=== PATIENT | male | born 1965 | race African-American/Black ===

== ENCOUNTER 2022-09-29 12:05 | Emergency (ER) | payer OTHER ==
[2022-09-29 12:21] VITALS: BP 142/89
--- NOTE | 2022-09-29 13:02 | ED Physician Documentation ---
PD HPI OPHTHO - Stated complaint Stated Complaint: BILAT EYE IRRITATION/SWELLING - Chief complaint Chief Complaint: Heent - History obtained from History obtained from: Patient - History of Present Illness Timing - onset: How many weeks ago (2) Timing - duration: Weeks (2) Timing - details: Gradual onset Location: Both Quality / character: Itching, Burning Associated symptoms: Redness, Tearing. No: Discharge, FB sensation, Double vision - Additional information Additional information: 57-year-old male presents the emergency department with bilateral eye discomfort, tearing and drainage. He states he was treated for bacterial con junctivitis, has been on several different eyedrops and ointments. He states he saw Dr. Conte, ophthalmology who placed him on prednisolone, he states that he was improving on this but stopped it 2 to 3 days ago and symptoms are worsening again. He states he did not call ophthalmology for follow-up. [facility]. Patient does not wear contacts. No fevers. No chills. has similar symptoms. He states his vision is blurry today. Review of Systems Constitutional: denies: Fever GI: denies: Vomiting PD PAST MEDICAL HISTORY - Past Medical History Past Medical History: No - Past Surgical History Past Surgical History: No - Allergies Allergies/Adverse Reactions: Allergies Allergy/AdvReac Type Severity Reaction Status Date / Time No Known Drug Allergies Allergy Verified 09/29/22 12:15 PD ED PE NORMAL - Vitals Vital signs reviewed: Yes - General General: Alert and oriented X 3, No acute distress - HEENT HEENT: PERRL, Moist mucous membranes, Pharynx benign, Other (Mild bilateral conjunctival injection. No drainage. No fluorescein uptake. No corneal ulcerations. No pain with extraocular movement) - Neck Neck: Supple, no meningeal sign - Cardiac Cardiac: RRR - Respiratory Respiratory: No respiratory distress, Clear bilaterally - Derm Derm: Warm and dry - Neuro Neuro: Alert and oriented X 3 - Psych Psych: Normal mood, Normal affect Results - Vitals Vitals: Vital Signs - 24 hr 09/29/22 12:16 Temperature 36.6 C Heart Rate 69 Respiratory 16 Rate Blood Pressure 142/89 H O2 Saturation 100 Oxygen O2 Source Room air PD Medical Decision Making - ED course Complexity details: considered differential, d/w patient ED course: Discussed the case with ophthalmology, Dr. Conte. He recommends holding antibiotics at this time he thinks that the patient may have had a reaction to the ophthalmic antibiotics originally. Recommends the patient go back on the prednisolone eyedrops as prescribed and follow-up closely in the office. Patient counseled regarding signs and symptoms for which I believe and urgent re-evaluation would be necessary. Patient with good understanding of and agreement to plan and is comfortable going home at this time This document was made in part using voice recognition software. While efforts are made to proofread this document, sound alike and grammatical errors may occur. Departure - Departure Disposition: 01 Home, Self Care Clinical Impression: Conjunctivitis Qualifiers: Conjunctivitis type: unspecified Laterality: bilateral Qualified Code(s): H10.9 - Unspecified conjunctivitis Condition: Good Instructions: ED Conjunctivitis Nonspecific Follow-Up: AYLIN CHAVEZ ARNP [Primary Care Provider] - Adeel Conte MD [Provider Admit Priv/Credential] - Within 3 Days Comments: I spoke with Dr. Conte today and he recommended to start on the prednisone as previously prescribed. He feels that you may have been having a reaction to the last antibiotic you are placed on. He does not recommend further antibiotics today. Please contact his office today for an appointment within the next 1 to 2 days. Discharge Date/Time: 09/29/22 13:05
== END 2022-09-29 13:05 | disposition home or self-care (01) ==
LOC: ED 12:05
DX: H10.9 Unspecified conjunctivitis (principal)
CPT/HCPCS: 99281; 99284

== ENCOUNTER 2023-09-11 16:41 | Emergency (ER) | payer OTHER ==
--- NOTE | 2023-09-11 17:20 | ED Physician Documentation ---
History of Present Illness - Stated complaint Stated Complaint: - Chief complaint Chief Complaint: UTI - History obtained from History obtained from: Patient - Additonal information Additional information: Relatively healthy 57-year-old gentleman with history of remote UroLift procedure 3 years ago has had 3 weeks of worsening suprapubic discomfort and dysuria. Also dark urine. No fevers or back pain. PD PAST MEDICAL HISTORY - Past Medical History Past Medical History: No - Past Surgical History Past Surgical History: Yes - Present Medications Home Medications: Ambulatory Orders Medication Instructions Recorded Confirmed No Known Home Medications 09/11/23 09/11/23 - Allergies Allergies/Adverse Reactions: Allergies Allergy/AdvReac Type Severity Reaction Status Date / Time No Known Drug Allergies Allergy Verified 09/11/23 17:03 - Social History Does the pt smoke?: No Smoking Status: Never smoker PD ED PE NORMAL - Vitals Vital signs reviewed: Yes - General General: Alert and oriented X 3, No acute distress - Abdomen Abdomen: Normal bowel sounds, Soft, Non tender - Male Male : Other (Normal male circumcised genitalia, no hernia mass or tenderness of the testicles.) - Neuro Neuro: Alert and oriented X 3 Results - Vitals Vitals: Vital Signs - 24 hr 09/11/23 09/11/23 09/11/23 16:59 18:18 18:54 Temperature 36.5 C 36.5 C Heart Rate 64 70 70 Respiratory 16 17 17 Rate Blood Pressure 123/84 H 121/88 H 121/88 H O2 Saturation 97 100 100 Oxygen O2 Source Room air - Labs Labs: Laboratory Tests 09/11/23 09/11/23 09/11/23 17:14 17:14 17:20 WBC 5.3 RBC 4.98 Hgb 15.0 Hct 46.0 MCV 92.4 MCH 30.1 MCHC 32.6 RDW 13.0 Plt Count 254 MPV 10.3 Neut # (Auto) 3.4 Lymph # (Auto) 1.3 L Dale # (Auto) 0.4 Eos # (Auto) 0.1 Baso # (Auto) 0.1 Absolute Nucleated RBC 0.00 Nucleated RBC % 0.0 Sodium 139 Potassium 3.7 Chloride 106 Carbon Dioxide 28 Anion Gap 5.0 L BUN 16 Creatinine 1.0 Estimated GFR (MDRD) 93 Glucose 104 Calcium 9.7 Total Bilirubin 0.7 AST 16 ALT 15 Alkaline Phosphatase 72 Total Protein 6.8 Albumin 4.3 Globulin 2.5 Albumin/Globulin Ratio 1.7 Lipase 61 Urine Color YELLOW Urine Clarity HAZY Urine pH 6.0 Ur Specific Stella >=1.030 H Urine Protein TRACE Urine Glucose (UA) NEGATIVE Urine Ketones TRACE Urine Occult Blood LARGE H Urine Nitrite NEGATIVE Urine Bilirubin NEGATIVE Urine Urobilinogen 1 (NORMAL) Ur Leukocyte Esterase NEGATIVE Urine RBC TNTC H Urine WBC 0-3 Ur Squamous Epith Cells FEW Squamous Urine Bacteria Few Ur Microscopic Review INDICATED Urine Culture Comments NOT INDICATED PD Medical Decision Making - ED course ED course: He presents with pelvic discomfort and hematuria. Workup demonstrates a normal CBC, normal CMP, bloody urine without signs of infection, and CT showing bladder stones. He was referred to urology. Departure - Departure Disposition: 01 Home, Self Care Clinical Impression: Bladder stone Condition: Good Record reviewed to determine appropriate education?: Yes Follow-Up: Frank Cunningham MD [Provider Admit Priv/Credential] - Comments: You have stones in your bladder and you should follow-up with our urologist, call for the next available appointment. Return for new or worsening symptoms. There is no current evidence of bladder infection or other worrisome etiology. Discharge Date/Time: 09/11/23 18:55
[2023-09-11 17:24] LABS: BASOPHILS # (AUTO) 0.1 10^3/uL (0.0-0.1); BASOPHILS % (AUTO) 0.9 %; EOSINOPHILS # (AUTO) 0.1 10^3/uL (0.0-0.7); EOSINOPHILS % (AUTO) 1.9 %; LYMPHOCYTES # (AUTO) 1.3 10^3/uL (1.5-3.5); MEAN CORPUSCULAR HEMOGLOBIN 30.1 pg (27.0-31.0); MEAN CORPUSCULAR HGB CONC 32.6 g/dL (32.0-36.0); MEAN CORPUSCULAR VOLUME 92.4 fL (80.0-94.0); MEAN PLATELET VOLUME 10.3 fL (7.4-11.4); MONOCYTES # (AUTO) 0.4 10^3/uL (0.0-1.0); MONOCYTES % (AUTO) 7.3 %; NEUTROPHILS # (AUTO) 3.4 10^3/uL (1.5-6.6); NEUTROPHILS % (AUTO) 64.7 %; PLT - PLATELET COUNT 254 10^3/uL (130-450); RED BLOOD COUNT 4.98 10^6/uL (4.70-6.10); WHITE BLOOD COUNT 5.3 x10^3/uL (4.8-10.8)
[2023-09-11 17:31] LABS: BILIRUBIN,URINE NEGATIVE (NEGATIVE); CLARITY,URINE HAZY (CLEAR); GLUCOSE, URINE (UA) NEGATIVE (NEGATIVE); KETONES,URINE (UA) TRACE mg/dL (NEGATIVE); LEUKOCYTE ESTERASE, URINE NEGATIVE (NEGATIVE); NITRITE,URINE NEGATIVE (NEGATIVE); OCCULT BLOOD,URINE LARGE (NEGATIVE); PROTEIN,URINE TRACE mg/dL (NEGATIVE); UROBILINOGEN,URINE 1 (NORMAL) E.U./dL (NORMAL)
[2023-09-11 17:37] LABS: ALBUMIN 4.3 g/dL (3.2-5.5); ALBUMIN/GLOBULIN RATIO 1.7 (1.0-2.2); BILIRUBIN,TOTAL 0.7 mg/dL (0.2-1.0); CALCIUM 9.7 mg/dL (8.5-10.3); POTASSIUM 3.7 mmol/L (3.5-4.5); TOTAL PROTEIN 6.8 g/dL (6.4-8.9)
[2023-09-11 17:38] LABS: BACTERIA,URINE Few /HPF (None Seen); RBC,URINE TNTC /HPF (0-5); SQUAMOUS EPITHELIAL CELL,UR FEW Squamous (<= Few); WBC,URINE 0-3 /HPF (0-3)
[2023-09-11 18:32] VITALS: BP 121/88; O2SAT 100
--- NOTE | 2023-09-11 18:42 | CT Report ---
PROCEDURE: Abdomen/Pelvis WO INDICATIONS: pelvic pain and hematuria TECHNIQUE: A CT scan of the abdomen and pelvis was performed without the use of intravenous contrast. Images we re recorded and evaluated at appropriate window settings. Reformats: coronal and sagittal. For radiat ion dose reduction, the following was used: automated exposure control, adjustment of mA and/or kV ac cording to patient size. COMPARISON: None. FINDINGS: Image quality: Diagnostic. Lower chest: Unremarkable. Liver: No contour-deforming mass. Gallbladder and biliary tree: Spleen: No splenomegaly. Pancreas: No pancreatic ductal dilation. Adrenals: No adrenal nodule. Kidneys and ureters: No hydronephrosis. No renal cystic lesion which requires follow up. No solid mas s. Stomach, bowel and peritoneum: No bowel distension. No pathologic free fluid. Minimal scattered dive rticula. Lymph nodes: No central or retroperitoneal adenopathy. Vessels: No infrarenal aortic aneurysm. PELVIS Reproductive organs: Unremarkable. Bladder: No wall thickness, accounting for underdistention. Calcifications are present within the efra dder. Pelvic lymph nodes: No pelvic adenopathy by size criteria. Bones: No aggressive osseous abnormality. Other: Fat-containing ventral and bilateral inguinal hernias. IMPRESSION: Bladder calcifications are present likely representing previously passed stones. No areas of inflammatory change are identified within the abdomen or pelvis. Minimal diverticulosis. Reviewed by: Raquel Rivera MD on 09/11/2023 6:41 PM PDT Approved by: Raquel Rivera MD on 09/11/2023 6:41 PM PDT Station ID: [id number]
== END 2023-09-11 18:55 | disposition home or self-care (01) ==
LOC: ED 16:41
DX: N21.0 Calculus in bladder (principal); R31.9 Hematuria, unspecified
CPT/HCPCS: 36415; 80053; 81001; 81003; 83690; 85025; 87086; 99283; 99284

== ENCOUNTER 2023-11-02 08:57 | Day surgery (SDC) | payer OTHER ==
[2023-11-02] MEDS: LACTATED RINGERS 1,000 ML IV ONE ×2 (09:08→12:03)
[2023-11-02] MEDS ORDERED: ceFAZolin 2 GM VIAL ONE (09:11)
[2023-11-02] MEDS ORDERED: LIDOCAINE 2% URO-JET 5 ML SYRINGE UR ONE ×2 (10:48→11:46)
--- NOTE | 2023-11-02 10:52 | ANESTHESIA ---
Pre-Anesthesia VS, & Labs - Diagnosis calculus of lower urinary tract, bladder stone - Procedure laser cystolitholapaxy Vital Signs: Temp Pulse Resp BP Pulse Ox O2 Flow Rate 36.7 C 64 13 127/97 H 97 11/02/23 09:09 11/02/23 09:09 11/02/23 09:09 11/02/23 09:09 11/02/23 09:09 Height: 6 ft 8 in Weight (kg): 134.2 kg Body Mass Index: 32.5 BMI Classification: Obese - NPO >8 hours Home Medications and Allergies Home Medications: Ambulatory Orders Ibuprofen [Motrin] 600 mg PO Q6H PRN 10/26/23 Ibuprofen [Motrin] 600 mg PO Q6H PRN 10/26/23 Allergies/Adverse Reactions: Allergies Allergy/AdvReac Type Severity Reaction Status Date / Time No Known Drug Allergies Allergy Verified 11/02/23 09:40 Anes History & Medical History - Anesthetic History Anesthesia Complications: reports: No previous complications Family history of Anesthesia Complications: Denies Family history of Malignant Hyperthermia: Denies - Medical History Cardiovascular: reports: None Pulmonary: reports: Sleep apnea, CPAP use Gastrointestinal: reports: None Urinary: reports: Other Musculoskeletal: reports: None Endocrine/Autoimmune: reports: None Skin: reports: None Smoking Status: Never smoker - Surgical History General: reports: Colonoscopy Orthopedic: reports: Arthroscopic surgery Exam General: Alert, Oriented x3, Cooperative Dental: WNL Mouth Openin Fingerbreadth Neck Mobility: Normal Mallampati classification: II Thyromental Distance: 4-6 cm Respiratory: Lungs clear Cardiovascular: Regular rate Plan Anesthesia Type: General Consent for Procedure(s) Verified and Reviewed: Yes Code Status: Attempt Resuscitation ASA classification: 2-Mild systemic disease Is this case an emergency?: No
[2023-11-02] MEDS ORDERED: ePHEDrine 50 MG/ML VIAL IVP PRN (10:53)
[2023-11-02] MEDS ORDERED: MORPHINE 2 MG/ML CARPUJECT IVP PRN (10:53)
[2023-11-02] MEDS ORDERED: fentaNYL 100 MCG/2 ML VIAL IVP PRN (10:53)
[2023-11-02] MEDS ORDERED: NALOXONE 0.4 MG/ML VIAL IVP PRN (10:53)
[2023-11-02] MEDS ORDERED: METOCLOPRAMIDE 10 MG/2 ML VIAL IVP PRN (10:53)
[2023-11-02] MEDS ORDERED: HYDROmorphone 0.5 MG/0.5 ML SYRINGE IVP PRN (10:53)
[2023-11-02] MEDS ORDERED: ATROPINE ABBOJECT 1 MG/10 ML SYRINGE IVP PRN (10:53)
[2023-11-02] MEDS ORDERED: ONDANSETRON 4 MG/2 ML VIAL IVP PRN ×2 (10:53→12:02)
[2023-11-02] MEDS ORDERED: KETOROLAC 30 MG/ML VIAL ONE (10:59)
[2023-11-02] MEDS ORDERED: ONDANSETRON 4 MG/2 ML VIAL ONE (10:59)
[2023-11-02] MEDS ORDERED: LIDOCAINE-PF 2% 10 ML AMP SUBQ ONE (10:59)
[2023-11-02] MEDS ORDERED: PROPOFOL 200 MG/20 ML VIAL IVP ONE (10:59)
[2023-11-02] MEDS ORDERED: LACTATED RINGERS 1,000 ML IV SCH (11:00)
[2023-11-02] MEDS ORDERED: fentaNYL 100 MCG/2 ML VIAL ONE (11:02)
[2023-11-02] MEDS ORDERED: MIDAZOLAM 2 MG/2 ML VIAL ONE (11:02)
[2023-11-02] MEDS ORDERED: ceFAZolin 1 GM VIAL ONE (11:26)
[2023-11-02] MEDS: LIDOCAINE 2% URO-JET 5 ML SYRINGE UR ONE ×2 (11:32)
[2023-11-02] MEDS ORDERED: HYDROcod/ACETAM 5/325 MG TABLET PO PRN (12:02)
--- NOTE | 2023-11-02 12:08 | Discharge Plan ---
Discharge Plan Problem Reviewed?: Yes Disposition: Home, Self Care Condition: Good Prescriptions: Docusate Sodium 100Mg Capsule [Colace 100Mg Capsule] 100 mg PO DAILY #7 cap oxyCODONE [Roxicodone] 5 mg PO Q4H PRN #10 tablet PRN Reason: Pain Diet: Regular Activity Restrictions: Additional Comments (as instructed) Shower Restrictions: No Driving Restrictions: No Instruction Topics: Cystoscopy Additional Instructions or Follow Up instructions: You have a follow-up with Dr. Cunningham on December 08 at 1 PM. Please arrive 15 minutes early No Smoking: If you smoke, Please STOP! Call for help. Follow-up with: Frank Cunningham MD [Provider Admit Priv/Credential] -
--- NOTE | 2023-11-02 12:12 | OPERATIVE REPORT ---
Operative Report - General Procedure Date: 11/02/23 Planned Procedure: Cystoscopy, laser cystolitholapaxy, removal of UroLift Pre-Op Diagnosis: Bladder stone, urolift Procedure Performed: Cystoscopy, laser cystolitholapaxy, removal of UroLift, Transurethral resection of prostate and transurethral fulguration of prostate Post Op Diagnosis: Bladder stone, urolift, hematuria - Procedure Note Primary Surgeon: Octavio Anesthesia Provider: CARYN Smith Anesthesia Technique: General LMA Pathology: bladder stone Estimated Blood Loss (mL): 5 Findings: 2 cm crystalline stone attached to a UroLift implant. Laser used to break up stone and dust sent for analysis UroLift implant grasped and removed and sent for gross Fulguration and minor resection of prostate for hemostasis Complications: none - Other Other Information/Narrative: After informed consent was obtained the patient brought to the OR and laid in the supine position. The patient was anesthetized per anesthesia protocols and prepped draped in usual sterile fashion. He was placed in dorsolithotomy position. A formal timeout was performed reconfirming the patient and procedure. A 22 Cypriot cystoscope was advanced easily into the urinary bladder. At the bladder neck there was a large 2 cm crystalline stone that was adherent to the wall. Using a 200 m laser fiber we broke up the stone into small pieces until we could see there was a chunk of stone remaining attached to a UroLift staple on the mucosa of the bladder. Using a grasper we grasped the stone and pulled it off we then grasped the UroLift bonifacio and grasped and removed it. This was sent separately. Stone pieces were also sent for analysis. He was noted to have hematuria at this time and so a 26 Cypriot resectoscope was placed into the urinary bladder. The oozing area from where the UroLift was removed was resected and then fulgurated for excellent hemostasis. The bladder was cleared of any other pathology. A Uro-Jet was placed. A 22 Cypriot three-way Felix catheter was placed and he was put on some gentle continuous bladder irrigation to go to the PACU. This concluded the procedure and the patient tolerated the procedure well. The plan will be for him to have the catheter removed likely in the PACU and then follow-up in 6 weeks time with me
[2023-11-02 12:55] VITALS: O2SAT 97
[2023-11-02 13:25] VITALS: BP 122/78
--- NOTE | 2023-11-02 16:01 | ANESTHESIA POST OP EVALUATION ---
Anesthesia Post Eval - Post Anesthesia Eval Vitals: Last Vital Signs Temp 36.4 C L 11/02/23 13:15 Pulse 50 L 11/02/23 13:15 Resp 12 11/02/23 13:15 BP 122/78 11/02/23 13:15 Pulse Ox 97 11/02/23 13:15 O2 Flow Rate CV Function Including HR & BP: Stable Pain Control: Satisfactory Nausea & Vomiting: Negative Mental Status: Baseline Respiratory Status: Airway Patent Hydration Status: Satisfactory Anesthesia Complications: None
[2023-11-09 20:07] LABS: CALCIUM OXALATE DIHYDRATE 90 % (.); CALCIUM OXALATE MONOHYDRATE 10 % (.); STONE COLOR Tan (.); STONE SIZE 5x5 mm (.); STONE WEIGHT 637 mg (.)
== END 2023-11-02 08:58 | disposition home or self-care (01) ==
LOC: SDS 08:57
PROVIDERS: ATTEND Urology
PROC: 0VC08ZZ Extirpation of Matter from Prostate, Via Natural or Artificial Opening Endoscopic (ICD-10-PCS; 2023-11-02)
PROC: 0TCB8ZZ Extirpation of Matter from Bladder, Via Natural or Artificial Opening Endoscopic (ICD-10-PCS; principal; 2023-11-02 10:15)
DX: N21.0 Calculus in bladder (principal); N40.1 Benign prostatic hyperplasia with lower urinary tract symptoms; N39.498 Other specified urinary incontinence; R39.15 Urgency of urination; G47.30 Sleep apnea, unspecified; E66.9 Obesity, unspecified; Z68.32 Body mass index [BMI] 32.0-32.9, adult
CPT/HCPCS: 52310; 52317; 82365; C1758; J7120

== ENCOUNTER 2023-12-24 09:31 | Outpatient (CLI) | payer OTHER ==
--- NOTE | 2023-12-24 13:08 | XRAY Report ---
PROCEDURE: Chest 2V INDICATIONS: FATIGUE TECHNIQUE: 2 views of the chest were acquired. COMPARISON: None. FINDINGS: Surgical changes and devices: None. Lungs and pleura: No pleural effusions or pneumothorax. Lungs are clear. Mediastinum: Mediastinal contours appear normal. Heart size is normal. Bones and chest wall: No suspicious bony lesions. Overlying soft tissues appear unremarkable. IMPRESSION: No acute cardiopulmonary process. Reviewed by: Raquel Rivera MD on 12/24/2023 1:06 PM PDT Approved by: Raquel Rivera MD on 12/24/2023 1:06 PM PDT Station ID: [id number]
== END 2023-12-24 09:32 | disposition home or self-care (01) ==
LOC: DI 09:31
PROVIDERS: ATTEND Family Medicine
DX: R53.83 Other fatigue (principal)

== ENCOUNTER 2025-03-11 09:30 | Observation (INO) ==
--- OUTSIDE RECORDS SUMMARY | 2025-03-11 09:54 | EXTERNAL MEDICAL SUMMARY RPT | Continuity of Care Document ---
Author Organization [facility] Address [address] [place] [id number] Phone Problems date description facility 2024-12-19 12:17 Abrasion of other part of head, initial encounter [facility] 2024-12-20 10:15 Abrasion of other part of head, initial encounter [facility] 2024-12-20 11:42 Abrasion of other part of head, initial encounter [facility] 2025-01-06 12:00 Laceration without f oreign body of other part of head, initial encounter [facility] 2025-01-16 16:09 Benign prostatic hyp erplasia with lower urinary tract symptoms [facility] 2025-01-16 16:09 Elevated prostate specific anti gen [PSA] [facility] 2025-02-01 11:55 Abrasion of other part of head, initial encounter [facility] 2025-02-01 13:15 Benign prostatic hyp erplasia with lower urinary tract symptoms [facility] 2025-02-01 13:15 Elevated prostate specific anti gen [PSA] [facility] 2025-02-03 10:40 Abrasion of other part of head, initial encounter [facility] 2025-02-15 15:30 Benign prostatic hyp erplasia with lower urinary tract symptoms [facility] 2025-02-15 15:30 Elevated prostate specific anti gen [PSA] [facility] 2025-02-24 14:22 Abrasion of other part of head, initial encounter [facility] 2025-02-28 12:49 Benign prostatic hyp erplasia with lower urinary tract symptoms [facility] 2025-02-28 12:49 Elevated prostate specific anti gen [PSA] [facility] 2025-02-28 12:59 Benign prostatic hyp erplasia with lower urinary tract symptoms [facility] 2025-02-28 12:59 Elevated prostate specific anti gen [PSA] [facility] Results/Labs test date facility value unit notes Result panel 1 UROBILINOGEN,URINE 2024-12-16 11:53 [facility] 0.2 (NORMAL) e.u./dl (missing) SPECIFIC GRAVITY,URINE 2024-12-16 11:53 [facility] 1.015 (missing) (missing) PH,URINE 2024-12-16 11:53 [facility] 6.0 ph (missing) CLARITY,URINE 2024-12-16 11:53 [facility] CLEAR (missing) (missing) MUDS CUTOFF CONCENTRATIONS 2024-12-16 11:53 [facility] CUTOFF CONC BELOW: (missing) [facility] uses the PROFILE-V TagMii Drugs of Abuse Test System. It detects drug classes at the following cutoff concentrations: AMP Amphetamine (d-Amphetamine) 500 ng/mL BAR Barbiturates (Butalbital) 200 ng/mL BZO Benzodiazepines (Nordiazepam) 150 ng/mL BUP Buprenorphine (Buprenorphine) 10 ng/mL NICOLETTE Cocaine (Benzoylecgonine) 150 ng/mL MAMP Methamphetamine (d-Methamphetamine ) 500 ng/mL MTD Methadone (Methadone) 200 ng/mL OPI Opiates (Morphine) 100 ng/mL OXY Oxycodone (Oxycodone) 100 ng/mL PCP Phencyclidine (Phencyclidine) 25 ng/mL BUP Buprenorphine (Buprenorphine) 10 ng/mL THC Cannabinoids (66-ovt-7-carboxy- 9-THC) 50 ng/mL TCA Tricyclic Antidepressants (Desipramine) 300 ng/mL All drug screen results are unconfirmed. Results are to be used for medical (i.e. treatment) purposes only. Unconfirmed screening results must not be used for non-medical purposes (e.g., employment testing, legal testing). AMPHETAMINE SCREEN,URINE 2024-12-16 11:53 [facility] NEGATIVE (missing) (missing) BARBITURATE SCREEN,UR 2024-12-16 11[facility] NEGATIVE (missing) (missing) BUPRENORPHINE SCREEN, URINE 2024-12-16 11:53 [facility] NEGATIVE (missing) (missing) COCAINE SCREEN URINE 2024-12-16 11:53 [facility] NEGATIVE (missing) (missing) LEUKOCYTE ESTERASE, URINE 2024-12-16 11:53 [facility] NEGATIVE (missing) (missing) METHADONE SCREEN, URINE 2024-12-16 11:53 [facility] NEGATIVE (missing) (missing) METHAMPHETAMINES SCREEN, URINE 2024-12-16 11:53 [facility] NEGATIVE (missing) (missing) NITRITE,URINE 2024-12-16 11:53 [facility] NEGATIVE (missing) (missing) OCCULT BLOOD,URINE 2024-12-16 11:53 [facility] NEGATIVE (missing) (missing) OPIATE SCREEN, URINE 2024-12-16 11:53 [facility] NEGATIVE (missing) (missing) OXYCODONE SCREEN, URINE 2024-12-16 11:53 [facility] NEGATIVE (missing) (missing) PHENCYCLIDINE SCREEN, URINE 2024-12-16 11:53 [facility] NEGATIVE (missing) (missing) TRICYCLIC ANTIDEPRESSANT,URINE 2024-12-16 11:53 [facility] NEGATIVE (missing) (missing) BILIRUBIN,URINE 2024-12-16 11:53 [facility] NEGATIVE (missing) Bilirubin can be influenced by color interference. Please correlate positive results with clinical presentation GLUCOSE, URINE (UA) 2024-12-16 11:53 [facility] NEGATIVE mg/dl (missing) KETONES,URINE (UA) 2024-12-16 11:53 [facility] NEGATIVE mg/dl (missing) PROTEIN,URINE 2024-12-16 11:53 [facility] NEGATIVE mg/dl (missing) UR CULTURE IF IND 2024-12-16 11:53 [facility] NOT INDICATED (missing) (missing) URINE MICROSCOPIC INDICATED? 2024-12-16 11:53 [facility] NOT INDICATED (missing) (missing) BENZODIAZEPINES SCREEN, URINE 2024-12-16 11:53 [facility] POSITIVE (missing) (missing) THC CANNABINOID SCREEN, URINE 2024-12-16 11:53 [facility] POSITIVE (missing) (missing) COLOR,URINE 2024-12-16 11:53 [facility] YELLOW (missing) URINE CLEAN CATCH Result panel 2 ETOH - ETHANOL 2024-12-16 12:24 [facility] < 10.0 mg/dl Blood Alcohol Levels Level Sporadic Drinkers Chronic drinkers 100 mg/dL Legally intoxicated* Minimal signs 200-250 mg/dL Alertness lost, Effort needed to becoming lethargic maintain emotional and motor control 300-350 mg/dL Stupor to coma Drowsy and slow >500 mg/dL Possible Coma *The legal definition of intoxication varies. This assy is for medical decision making only. As of December 2022 testing method has changed, this may include reference ranges. NUCLEATED RED BLOOD CELLS AUTO 2024-12-16 12:24 [facility] 0.0 /100wbc (missing) BASOPHILS # (AUTO) 2024-12-16 12:24 [facility] 0.0 10 3/ul (missing) NRBC ABSOLUTE COUNT (AUTO) 2024-12-16 12:24 [facility] 0.00 x10 3/ul (missing) EOSINOPHILS # (AUTO) 2024-12-16 12:24 [facility] 0.1 10 3/ul (missing) MONOCYTES # (AUTO) 2024-12-16 12:24 [facility] 0.4 10 3/ul (missing) BILIRUBIN,TOTAL 2024-12-16 12:24 [facility] 0.6 mg/dl As of December 2022 test ing method has changed, this may include reference ranges. LYMPHOCYTES # (AUTO) 2024-12-16 12:24 [facility] 1.0 10 3/ul (missing) LACTIC ACID, VENOUS 2024-12-16 12:24 [facility] 1.2 mmol/l N As of December 2022 testing method has changed, this may include reference ranges. CREATININE 2024-12-16 12:24 [facility] 1.3 mg/dl As of December 2022 test ing method has changed, this may include reference ranges. GLOBULIN 2024-12-16 12:24 [facility] 1.8 g/dl (missing) MEAN PLATELET VOLUME 2024-12-16 12:24 [facility] 10.5 fl (missing) GLUCOSE 2024-12-16 12:24 [facility] 103 mg/dl As of December 2022 test ing method has changed, this may include reference ranges. CHLORIDE 2024-12-16 12:24 [facility] 107 mmol/l As of December 2022 test ing method has changed, this may include reference ranges. RED CELL DISTRIBUTION WIDTH 2024-12-16 12:24 [facility] 12.5 % (missing) ALT ALANINE AMINOTRANSFERASE 2024-12-16 12:24 [facility] 14 iu/l As of December 2022 test ing method has changed, this may include reference ranges. SODIUM 2024-12-16 12:24 [facility] 140 mmol/l (missing) HGB - HEMOGLOBIN 2024-12-16 12:24 [facility] 15.0 g/dl (missing) AST ASPARTATE AMINOTRANSFERASE 2024-12-16 12:24 [facility] 16 iu/l As of December 2022 test ing method has changed, this may include reference ranges. BUN - BLOOD UREA NITROGEN 2024-12-16 12:24 [facility] 16 mg/dl As of December 2022 test ing method has changed, this may include reference ranges. ALBUMIN/GLOBULIN RATIO 2024-12-16 12:24 [facility] 2.3 (missing) (missing) TROPONIN I HIGH SENSITIVITY 2024-12-16 12:24 [facility] 2.9 ng/l A HIGH SENSITIVITY TROPONIN result of >= 14.9 ng/L for females is considered POSITIVE. A HIGH SENSITIVITY TROPONIN result of >= 19.8 ng/L for males is considered POSITIVE. A HIGH SENSITIVITY TROPONIN result of >= 17.9 ng/L for unspecified is considered POSITIVE. PLT - PLATELET COUNT 2024-12-16 12:24 [facility] 217 10 3/ul (missing) CARBON DIOXIDE - CO2 2024-12-16 12:24 [facility] 28 mmol/l As of December 2022 test ing method has changed, this may include reference ranges. MEAN CORPUSCULAR HEMOGLOBIN 2024-12-16 12:24 [facility] 31.3 pg (missing) MEAN CORPUSCULAR HGB CONC 2024-12-16 12:24 [facility] 33.0 g/dl (missing) NEUTROPHILS # (AUTO) 2024-12-16 12:24 [facility] 4.0 10 3/ul (missing) POTASSIUM 2024-12-16 12:24 [facility] 4.1 mmol/l As of December 2022 test ing method has changed, this may include reference ranges. ALBUMIN 2024-12-16 12:24 [facility] 4.2 g/dl As of December 2022 test ing method has changed, this may include reference ranges. RED BLOOD COUNT 2024-12-16 12:24 [facility] 4.80 10 6/ul (missing) LIPASE 2024-12-16 12:24 [facility] 43 u/l As of December 2022 test ing method has changed, this may include reference ranges. HCT - HEMATOCRIT 2024-12-16 12:24 [facility] 45.4 % (missing) ANION GAP 2024-12-16 12:24 [facility] 5.0 (missing) (missing) WHITE BLOOD COUNT 2024-12-16 12:24 [facility] 5.6 x10 3/ul (missing) TOTAL PROTEIN 2024-12-16 12:24 [facility] 6.0 g/dl As of December 2022 test ing method has changed, this may include reference ranges. ALKALINE PHOSPHATASE 2024-12-16 12:24 [facility] 64 iu/l As of December 2022 test ing method has changed, this may include reference ranges. GFR - MDRD 2024-12-16 12:24 [facility] 68 (missing) Social History date description facility
[2025-03-11 10:36] LABS: HCT - HEMATOCRIT 39.0 % (42.0-52.0); HGB - HEMOGLOBIN 13.4 g/dL (14.0-18.0); MEAN PLATELET VOLUME 11.0 fL (7.4-11.4); NRBC ABSOLUTE COUNT (AUTO) 0.00 x10^3/uL; NUCLEATED RED BLOOD CELLS AUTO 0.0 /100WBC; PLT - PLATELET COUNT 167 10^3/uL (130-450); RED CELL DISTRIBUTION WIDTH 13.2 % (12.0-15.0)
--- NOTE | 2025-03-11 10:36 | ED Physician Documentation ---
History of Present Illness Stated complaint Stated Complaint: POST SURG: GI PX, SWELLING, FEVER, CONSTIPATION History obtained from History obtained from: Patient History of Present Illness Pain level max: 8 Pain level now: 8 Additonal information Additional information: 59-year-old male status post a prostate biopsy about a week ago. He states since that time he has had increasing abdominal pain, testicular pain, prostate pain. He reports fevers at home. Reportedly had been on Bactrim since the procedure. He states he is just feeling worse and worse. Was seen here on 03/06. Has not started the new antibiotics. They were able to belt picker new antibiotics last night. He states he is having some dysuria and frequency. He states everything hurts. Review of Systems Constitutional Reports: Fever and Chills Ears, nose, mouth, and throat Denies: Neck pain Respiratory Denies: Cough Gastrointestinal Denies: Vomiting Musculoskeletal Denies: Back pain or Neck pain Integumentary/Breast Denies: Rash Meds/Allgy Home Medications Ambulatory Orders Medication Instructions Recorded Confirmed ibuprofen 600 mg tablet 600 mg PO Q6H PRN Pain 10/2503/06/25 ciprofloxacin HCl 500 mg tablet 500 mg PO BID #2 tabs 01/16/25 03/06/25 oxybutynin chloride 5 mg 5 mg PO QDAY #90 tabs 03/06/25 tablet,extended release 24 hr sulfamethoxazole 800 1 tab PO BID #14 tabs mg-trimethoprim 160 mg tablet cephalexin 500 mg capsule 500 mg PO QID #27 caps 03/08 sulfamethoxazole 400 1 tab PO BID #10 tabs mg-trimethoprim 80 mg tablet Allergies Allergies Allergy/AdvReac Type Severity Reaction Status Date / Time No Known Drug Allergies Allergy Verified 03/11/25 09:33 PFSH Active Problems All Active Problems (Updated 03/11/25 @ 14:39 by Andrea Dumont DNP) Sepsis (Acute) Urinary tract infection (Acute) Viral syndrome (Acute) Fever (Acute) BPH loc w urin obs/LUTS (Acute) Elevated PSA (Acute) Medical History Medical History (Updated 03/11/25 @ 14:39 by Andrea Dumont DNP) CARLOS ALBERTO treated with BiPAP High cholesterol Surgical History Surgical History History of colonoscopy History of arthroscopic knee surgery and ankle arthroscopy History of oral surgery Social History Social History (Updated 02/28/25 @ 12:58 by Anni Conte RN) Smoking Status: Current some day smoker If you are a former smoker, when did you quit? (Date/Year): occasional cigar Living arrangement: At home Marital Status: Living Condition: With family Do you feel safe in your home environment?: Yes History of physical, verbal, emotional, or financial abuse?: No Frequency: Occasional ETOH - Additional Notes: rarely Substance Use: denies use POLST Patient has POLST: No Exam Exam Vital Signs: Vital Signs x48h Temp Pulse Resp BP Pulse Ox 03/11/25 14:07 37.9 C 03/11/25 13:44 37.9 C 03/11/25 12:41 38.9 C H 03/11/25 12:34 85 15 112/72 95 03/11/25 11:03 70 22 133/66 H 97 03/11/25 09:34 37.2 C 78 20 118/70 98 Constitutional normal general appearance and no apparent distress HENMT oropharynx normal moist mucous membranes Eyes PERRL Neck/C-Spine visual inspection normal Respiratory breath sounds equal bilaterally, normal respiratory effort and clear to auscultation bilaterally Cardiovascular normal heart rate noted and regular rhythm noted Gastrointestinal abdomen normal to inspection, abdomen soft to palpation, nontender to palpation and nondistended Normal external appearance of the genitalia and scrotum. He is tender on the right side of the scrotum, no significant swelling or erythema. No hernias. Mild lymphadenopathy Genitourinary no CVA tenderness Extremities no edema Neurology speech normal Psychiatry mental status grossly normal and oriented x3 Skin skin color normal Results Vitals Vitals: Vital Signs - 24 hr 03/11/25 09:34 03/11/25 10:40 03/11/25 11:03 Temperature 37.2 C Temperature Source Oral Pulse Rate 78 70 Respiratory Rate 20 22 Blood Pressure 118/70 133/66 H O2 Saturation 98 97 O2 Source Room air Room air Pain Intensity 8 7 3 03/11/25 12:34 03/11/25 12:34 03/11/25 12:41 Temperature 38.9 C H Temperature Source Pulse Rate 85 Respiratory Rate 15 Blood Pressure 112/72 O2 Saturation 95 O2 Source Room air Pain Intensity 2 2 03/11/25 12:55 03/11/25 13:44 03/11/25 14:04 Temperature 37.9 C Temperature Source Pulse Rate Respiratory Rate Blood Pressure O2 Saturation O2 Source Pain Intensity 4 4 7 03/11/25 14:07 Temperature 37.9 C Temperature Source Pulse Rate Respiratory Rate Blood Pressure O2 Saturation O2 Source Pain Intensity 7 Oxygen O2 Source Room air Labs Labs: Laboratory Tests 03/11/25 03/11/25 03/11/25 10:25 11:38 11:38 WBC 6.8 RBC 4.36 L Hgb 13.4 L Hct 39.0 L MCV 89.4 MCH 30.7 MCHC 34.4 RDW 13.2 Plt Count 167 MPV 11.0 Neut # (Auto) 5.8 Lymph # (Auto) 0.4 L [place] # (Auto) 0.5 Eos # (Auto) 0.0 Baso # (Auto) 0.0 Absolute Nucleated RBC 0.00 Nucleated RBC % 0.0 PT 13.3 H INR 1.2 APTT 28.2 Sodium 135 Potassium 3.2 L Chloride 104 Carbon Dioxide 21 Anion Gap 10.0 BUN 13 Creatinine 1.3 Estimated GFR (MDRD) 68 L Glucose 120 H Lactic Acid 1.5 Calcium 8.8 Total Bilirubin 1.5 H AST 19 ALT 31 Alkaline Phosphatase 159 H Total Protein 6.3 L Albumin 3.7 Globulin 2.6 Albumin/Globulin Ratio 1.4 Lipase 18 Urine Color DARK YELLOW Urine Clarity CLOUDY Urine pH 6.0 Ur Specific [place] 1.010 Urine Protein 30 H Urine Glucose (UA) NEGATIVE Urine Ketones 40 H Urine Occult Blood LARGE H Urine Nitrite POSITIVE H Urine Bilirubin SMALL H Urine Urobilinogen 2 H Ur Leukocyte Esterase MODERATE H Urine RBC TNTC H Urine WBC >25 H Urine WBC Clumps PRESENT Ur Epithelial Cells MANY Transitional H FEW Renal Tubular Ur Squamous Epith Cells FEW Squamous Urine Bacteria Many H Urine Mucus Marked Strands Ur Microscopic Review INDICATED Urine Culture Comments INDICATED Rads (name of study) CT chest, CT abdomen pelvis, chest x-ray: Relevant Findings:: Final report received PD Medical Decision Making ED course Complexity details: reviewed results, re-evaluated patient, considered differential, d/w patient, d/w family and d/w accounting policy consultant ED course: No acute abnormalities on chest x-ray, CT of the chest will order CT abdomen pel vis. Ultrasound of the testicles and scrotum were ordered as well. He does have a fever 102 in the emergency department. White blood cell count is normal. Urinalysis consistent with UTI. Given Rocephin based on his recent urine culture. Blood cultures drawn. IV fluids given. Pain well-controlled in the emergency department with IV Dilaudid. Discussed with the hospitalist and will admit to observation for further care. Also discussed with Dr. Cunningham, urology Who can be consulted if needed by the hospitalist team. This document was made in part using voice recognition software. While efforts are made to proofread this document, sound alike and grammatical errors may occur. Discharge Plan Discharge Patient Disposition: ED Place in Observation Condition: Stable Clinical Impression: Fever Qualifiers: Fever type: unspecified Qualified Code(s): R50.9 - Fever, unspecified Urinary tract infection Qualifiers: Urinary tract infection type: acute cystitis Hematuria presence: with hematuria Qualified Code(s): N30.01 - Acute cystitis with hematuria
[2025-03-11] MEDS: SODIUM CHLORIDE 0.9% 1,000 ML IV STA ×2 (10:39→14:00)
[2025-03-11] MEDS: HYDROmorphone 1 MG/ML CARPUJECT IVP STA ×2 (10:40→14:04)
[2025-03-11] MEDS: LORazepam 2 MG/ML VIAL IVP STA (10:40)
[2025-03-11] MEDS: cefTRIAXone 1 GM VIAL IVP STA (10:42)
[2025-03-11 10:55] LABS: ALT ALANINE AMINOTRANSFERASE 31.0 IU/L (10-60); AST ASPARTATE AMINOTRANSFERASE 19.0 IU/L (10-42); BUN - BLOOD UREA NITROGEN 13.0 mg/dL (6-20); CARBON DIOXIDE - CO2 21.0 mmol/L (21-32); CREATININE 1.3 mg/dL (0.6-1.3); GFR - MDRD 68.0 (>89)
[2025-03-11 11:02] LABS: INR 1.2 (0.8-1.2); PT - PROTHROMBIN TIME 13.3 secs (9.9-12.6)
--- NOTE | 2025-03-11 11:52 | XRAY Report ---
PROCEDURE: XR Chest 1V INDICATIONS: fever TECHNIQUE: One view of the chest was acquired. COMPARISON: None. FINDINGS: Surgical changes and devices: None. Lungs and pleura: No pleural effusions or pneumothorax. No consolidation. Costophrenic angles are not within the field of view. Mediastinum: Mediastinal contours appear normal. Heart size is normal. Bones and chest wall: No suspicious bony lesions. Overlying soft tissues appear unremarkable. IMPRESSION: No acute cardiopulmonary process. Reviewed by: Sheila Celis MD on 03/11/2025 10:50 AM [facility] Approved by: Sheila Celis MD on 03/11/2025 10:50 AM [place] Station ID: [id number]
[2025-03-11 12:08] LABS: KETONES,URINE (UA) 40 mg/dL (NEGATIVE); OCCULT BLOOD,URINE LARGE (NEGATIVE)
[2025-03-11 12:09] LABS: GLUCOSE, URINE (UA) NEGATIVE (NEGATIVE)
--- NOTE | 2025-03-11 12:14 | CT Report ---
PROCEDURE: CT Chest W INDICATIONS: fever CONTRAST: omni 300 100mL TECHNIQUE: After the administration of intravenous contrast, a CT scan of the chest was performed. Images were recorded and evaluated at appropriate window settings. Reformats: axial MIP of the chest, coronal and sagittal. For radiation dose reduction, the following was used: automated exposure control, adjustment of mA and/or kV according to patient size. COMPARISON: None. FINDINGS: Image quality: Diagnostic. Chest wall and lower neck: No thyroid nodule which requires sonographic follow up. No breast mass. No axillary or supraclavicular adenopathy by size. Lungs and pleura: No consolidation. No pleural effusions. No pneumothorax. No suspicious pulmonary nodules which require follow up. Mediastinum: Heart size is normal. No pericardial effusion. No large vessel abnormality. No mediastinal adenopathy by size criteria. Bones: No aggressive osseous abnormality. Upper Abdomen: See abdomen CT report. IMPRESSION: No acute cardiopulmonary process. Reviewed by: Sheila Celis MD on 03/11/2025 11:12 AM [facility] Approved by: Sheila Celis MD on 03/11/2025 11:12 AM [facility] Station ID: [id number]
--- NOTE | 2025-03-11 12:18 | CT Report ---
PROCEDURE: CT Abdomen/Pelvis W INDICATIONS: lower abd pain s/p prostate biopsy CONTRAST: omni 300 100mL TECHNIQUE: After the administration of intravenous contrast, a CT scan of the abdomen and pelvis was performed. Images were recorded and evaluated at appropriate window settings. Reformats: coronal and sagittal. For radiation dose reduction, the following was used: automated exposure control, adjustment of mA and/or kV according to patient size. COMPARISON: None. FINDINGS: Image quality: Diagnostic. Lower chest: See same day CT report.. Liver: No solid mass. Gallbladder: No intraluminal stone or wall thickening. Biliary tree: No intrahepatic or extrahepatic dilation, accounting for age. Spleen: No splenomegaly. Pancreas: No pancreatic ductal dilation. Adrenals: No adrenal nodule. Kidneys and ureters: No hydronephrosis. No renal cystic lesion which requires follow up. No solid mass. Stomach, bowel and peritoneum: No gastric or small bowel dilation. No abnormal wall thickening. No pathologic free fluid. Lymph nodes: No central or retroperitoneal adenopathy. Vessels: No infrarenal aortic aneurysm. Patent portal vein. PELVIS Reproductive organs: Linear metallic material is seen within the prostate. There is no periprostatic fluid collection. Mild periprostatic edema is present. Bladder: No abnormal wall thickening. Pelvic lymph nodes: No pelvic adenopathy by size criteria. Bones: No aggressive osseous abnormality. Other: There is a small fat-containing umbilical hernia. IMPRESSION: Mild periprostatic inflammation consistent with the history of recent biopsy. No evidence of postprocedural complication. Specifically, no evidence of abscess or hemorrhage. Reviewed by: Sheila Celis MD on 03/11/2025 11:16 AM [facility] Approved by: Sheila Celis MD on 03/11/2025 11:16 AM [facility] Station ID: [id number]
[2025-03-11 12:39] LABS: SQUAMOUS EPITHELIAL CELL,UR FEW Squamous (<= Few); WBC CLUMPS,URINE PRESENT
[2025-03-11] MEDS: ACETAMINOPHEN 325 MG TABLET PO STA (12:55)
--- NOTE | 2025-03-11 15:09 | HISTORY & PHYSICAL EXAMINATION ---
Chief Complaint Chief Complaint Chief Complaint: Fevers History of Present Illness Admitted From Admitted From:: Home with History Obtained From History obtained from: Patient interview History of Present Illness HPI Comment/Other: 59-year-old male with history of BPH and CARLOS ALBERTO who underwent prostate biopsy about a week ago. Since then, he has had increasing abdominal pain, testicular pain, prostate pain. Reports fevers at home. He was placed on Bactrim, with no effect. Urine culture since then are positive for E. coli which is resistant to Bactrim. In the ER, CT chest, abdomen, pelvis was performed which was positive for mild Camilo prostatic inflammation consistent with biopsy. No radiographic evidence of complication. He was febrile at 38.9 C and tachypneic at 22, thereby meeting SIRS criteria. He was given 1 g Rocephin given his positive urine cultures. Blood cultures were obtained, and he received 2 L IV fluid bolus. Lactate not elevated. Hospitalist was contacted for observation for sepsis secondary to UTI Meds/Allgy Home Medications Ambulatory Orders Medication Instructions Recorded Confirmed ibuprofen 600 mg tablet 600 mg PO Q6H PRN Pain 10/2503/06/25 ciprofloxacin HCl 500 mg tablet 500 mg PO BID #2 tabs 01/16/25 03/06/25 oxybutynin chloride 5 mg 5 mg PO QDAY #90 tabs 03/06/25 tablet,extended release 24 hr sulfamethoxazole 800 1 tab PO BID #14 tabs mg-trimethoprim 160 mg tablet cephalexin 500 mg capsule 500 mg PO QID #27 caps 03/08 sulfamethoxazole 400 1 tab PO BID #10 tabs mg-trimethoprim 80 mg tablet Allergies Allergies Allergy/AdvReac Type Severity Reaction Status Date / Time No Known Drug Allergies Allergy Verified 03/11/25 09:33 PFSH Active Problems All Active Problems (Updated 03/11/25 @ 14:39 by Andrea Dumont DNP) Sepsis (Acute) Urinary tract infection (Acute) Viral syndrome (Acute) Fever (Acute) BPH loc w urin obs/LUTS (Acute) Elevated PSA (Acute) Medical History Medical History (Updated 03/11/25 @ 14:39 by Andrea Dumont DNP) CARLOS ALBERTO treated with BiPAP High cholesterol Surgical History Surgical History History of colonoscopy History of arthroscopic knee surgery and ankle arthroscopy History of oral surgery Social History Social History (Updated 02/28/25 @ 12:58 by Anni Conte RN) Smoking Status: Current some day smoker If you are a former smoker, when did you quit? (Date/Year): occasional cigar Living arrangement: At home Marital Status: Living Condition: With family Do you feel safe in your home environment?: Yes History of physical, verbal, emotional, or financial abuse?: No Frequency: Occasional ETOH - Additional Notes: rarely Substance Use: denies use POLST Patient has POLST: No Review of Systems Status of ROS: 10 or more systems reviewed and unremarkable except as noted in history and below Constitutional Reports: Fever and Chills Cardiovascular Denies: Irregular heart rate, chest pain, palpitations or shortness of breath with exertion Respiratory Denies: Shortness of breath or Cough Gastrointestinal Reports: Abdominal pain Genitourinary Reports: Testicular pain Exam Exam Vital Signs: Vital Signs x48h Temp Pulse Resp BP Pulse Ox 03/11/25 14:07 37.9 C 03/11/25 13:44 37.9 C 03/11/25 12:41 38.9 C H 03/11/25 12:34 85 15 112/72 95 03/11/25 11:03 70 22 133/66 H 97 03/11/25 09:34 37.2 C 78 20 118/70 98 Constitutional Ill-appearing, sweaty HENMT normocephalic and head/scalp atraumatic Eyes PERRL Respiratory breath sounds equal bilaterally and normal respiratory effort Cardiovascular normal heart rate noted Gastrointestinal abdomen normal to inspection, abdomen soft to palpation and normoactive bowel sounds Genitourinary no CVA tenderness Extremities normal to inspection Neurology GCS 15 Psychiatry oriented x3 Skin skin color normal Conclusion/Plan Problem List (1) Sepsis: Plan: Sepsis is secondary to UTI No elevation in WBC, lactate normal Received Rocephin given recent urine cultures Continue Rocephin 1 g IV daily Received 2 L fluid bolus Continue IVF at 100 Blood cultures in process (2) Urinary tract infection: Plan: UTI complicated by recent prostate biopsy No CT evidence of complication from biopsy Rocephin 1 g IV daily Qualifiers: Hematuria presence: with hematuria Urinary tract infection type: acute cystitis Qualified Code(s): N30.01 - Acute cystitis with hematuria (3) BPH loc w urin obs/LUTS: Plan: Prostate biopsy [address] evidence of complication Does report testicular pain Testicular ultrasound ordered by ER provider Urology contacted by ER provider Plan Place in observation Full code His is his surrogate decision maker Lab Results Lab results reviewed: Yes 03/11/25 10:25 03/11/25 10:25 Diagnostic Imaging Results Diagnostic Imaging Results: positive Final report reviewed Core Measures Anticipated LOS I expect patient to be DC'd or transferred within 96 hours.: Yes DVT/VTE - Prophylaxis VTE/DVT Prophylaxis med ordered at admit?: Yes
--- NOTE | 2025-03-11 15:28 | Ultrasound Report ---
PROCEDURE: US Testicle w/Doppler Limited INDICATIONS: R testicular pain TECHNIQUE: Real-time scanning was performed of the scrotum and testicles, with image documentation. Color and pulse Doppler interrogation was performed of both testicles. COMPARISON: None. FINDINGS: Right: Testicle is normal in size at 4.0 x 2.4 x 3.5 cm, and homogenous in echotexture with the exception of ectasia of the rete testes. Epididymis is normal in overall size and morphology. There is a hydrocele. No varicoceles. Overlying scrotal skin is normal in thickness. Left: Testicle is normal in size at 4.5 x 2.7 x 2.9 cm, and homogeneous in echotexture with the exception of ectasia of the rete testes. Epididymis is normal in overall size and morphology with a 2 cm epididymal head cyst. No hydrocele. No varicoceles. Overlying scrotal skin is normal in thickness. Doppler: Color and pulse Doppler demonstrate normal arterial flow in both testicles. There is relative hyperemia on the right compared to left. IMPRESSION: Findings consistent with right epididymoorchitis. No evidence of torsion. Reviewed by: Sheila Celis MD on 03/11/2025 2:27 PM [facility] Approved by: Sheila Celis MD on 03/11/2025 2:27 PM MYK[facility] Station ID: [id number]
[2025-03-11] MEDS ORDERED: SODIUM CHLORIDE FLUSH 0.9% 10 ML SYRINGE IVP PRN (15:47)
[2025-03-11] MEDS: LACTATED RINGERS 1,000 ML IV SCH (16:02)
[2025-03-11] MEDS: SODIUM CHLORIDE FLUSH 0.9% 10 ML SYRINGE IVP SCH (16:06)
--- NOTE | 2025-03-11 16:49 | PHARMACY PROGRESS NOTE ---
Best Possible Medication History Admit Date and Time: 03/11/25 [id number] Home Medications Medication Instructions Recorded Confirmed Type oxybutynin chloride 5 mg 5 mg PO QDAY #90 tabs 03/11/25 Rx tablet,extended release 24 hr sulfamethoxazole 800 1 tab PO BID #14 tabs 03/11/25 Rx mg-trimethoprim 160 mg tablet Held on 03/11/25. Instructions: hasn't picked up yet cephalexin 500 mg capsule 500 mg PO QID #27 caps 03/0803/11/25 Rx sulfamethoxazole 400 1 tab PO BID #10 tabs 03/11/25 Rx mg-trimethoprim 80 mg tablet Held on 03/11/25. Instructions: hasn't picked up yet ibuprofen 800 mg tablet 800 mg PO DAILY PRN fever or pain 03/11/25 03/11/25 History rosuvastatin 10 mg tablet 10 mg PO DAILY 03/11/2502/27 History Processed by: Pharmacy Medications reviewed in ED?: No Medication History completed: Yes Secondary Source(s): Pharmacy records and Insurance records [facility] Statement: As the person ultimately responsible for medication therapy, providers are able to order a medication from an existing home medication list in [facility] via the "Reconcile Routine" prior to Confirmation of that medication by administrative support technician. Such practice is discouraged except when the physician, in their clinical judgment, deems that a medical need exists for a medication without regard to previous use.
[2025-03-11] MEDS: ACETAMINOPHEN 325 MG TABLET PO PRN (18:33)
[2025-03-11] MEDS: HYDROmorphone 0.5 MG/0.5 ML SYRINGE IVP PRN (18:34)
[2025-03-11] MEDS ORDERED: ONDANSETRON ODT 4 MG TABLET TL PRN (18:43)
[2025-03-11] MEDS ORDERED: ONDANSETRON 4 MG/2 ML VIAL IVP PRN (18:43)
[2025-03-11 20:30] LABS: CHLAMYDIA TRACHOMATIS DNA NEGATIVE (NEGATIVE); NEISSERIA GONORRHOEAE DNA NEGATIVE (NEGATIVE); TRICHOMONAS VAGINALIS DNA NEGATIVE (NEGATIVE)
[2025-03-12 04:25] LABS: HCT - HEMATOCRIT 36.0 % (42.0-52.0); HGB - HEMOGLOBIN 12.0 g/dL (14.0-18.0); MEAN PLATELET VOLUME 10.5 fL (7.4-11.4); NRBC ABSOLUTE COUNT (AUTO) 0.00 x10^3/uL; NUCLEATED RED BLOOD CELLS AUTO 0.0 /100WBC; PLT - PLATELET COUNT 166 10^3/uL (130-450); RED CELL DISTRIBUTION WIDTH 13.2 % (12.0-15.0)
[2025-03-12 04:46] LABS: BUN - BLOOD UREA NITROGEN 12.0 mg/dL (6-20); CARBON DIOXIDE - CO2 22.0 mmol/L (21-32); CREATININE 1.0 mg/dL (0.6-1.3); GFR - MDRD 92.0 (>89)
[2025-03-12] MEDS: cefTRIAXone 1 GM VIAL IVP SCH (08:26)
[2025-03-12] MEDS: ENOXAPARIN 40 MG/0.4 ML SYRINGE SUBQ SCH (08:27)
[2025-03-12] MEDS: SOLIFENACIN SUCCINATE 5 MG TABLET PO SCH (08:27)
[2025-03-12] MEDS: SENNA 8.6 MG TABLET PO SCH (09:38)
[2025-03-12] MEDS: DOCUSATE SODIUM 250 MG CAPSULE PO SCH (09:39)
--- NOTE | 2025-03-12 12:26 | Discharge Summary ---
Discharge Summary Admit Date: 03/11/25 Discharge Date: 03/12/25 Discharging Provider: Andrea Dumont Primary Care Provider: Jose Acuña Code Status: Attempt Resuscitation DIAGNOSES Admission Diagnoses: Sepsis UTI BPH Discharge Diagnoses with Status of Each Condition: Sepsisresolved UTIdischarging on Keflex BPHestablished with urology Epididymoorchitisdischarging with short course of oxycodone, Motrin HPI History of Present Illness: 59-year-old male with history of BPH and CARLOS ALBERTO who underwent prostate biopsy about a week ago. Since then, he has had increasing abdominal pain, testicular pain, prostate pain. Reports fevers at home. He was placed on Bactrim, with no effect. Urine culture since then are positive for E. coli which is resistant to Bactrim. In the ER, CT chest, abdomen, pelvis was performed which was positive for mild Camilo prostatic inflammation consistent with biopsy. No radiographic evidence of complication. He was febrile at 38.9 C and tachypneic at 22, thereby meeting SIRS criteria. He was given 1 g Rocephin given his positive urine cultures. Blood cultures were obtained, and he received 2 L IV fluid bolus. Lactate not elevated. Hospitalist was contacted for observation for sepsis secondary to UTI HOSPITAL COURSE Hospital Course: Patient was held overnight, and was afebrile. Blood cultures showed no growth at 1 day. Urine cultures showing gram-negative bacilli, likely the same E. coli that was growing on the previous urine culture. Previous urine culture shows sensitivity to cephalosporins, so I am discharging him to continue his previously ordered course of Keflex. Scrotal ultrasound showed epididymoorchitis. STD testing was performed and found to be negative. He is being discharged home to finish his antibiotics and follow-up with urology ALLERGIES Allergies Allergy/AdvReac Type Severity Reaction Status Date / Time No Known Drug Allergies Allergy Verified 03/11/25 09:33 MEDICATIONS Ambulatory Orders Medication Instructions Recorded Confirmed oxybutynin chloride 5 mg 5 mg PO QDAY #90 tabs 03/11/25 tablet,extended release 24 hr sulfamethoxazole 800 1 tab PO BID #14 tabs 03/11/25 mg-trimethoprim 160 mg tablet Held on 03/11/25. Instructions: hasn't picked up yet cephalexin 500 mg capsule 500 mg PO QID #27 caps 03/0803/11/25 sulfamethoxazole 400 1 tab PO BID #10 tabs 03/11/25 mg-trimethoprim 80 mg tablet Held on 03/11/25. Instructions: hasn't picked up yet ibuprofen 800 mg tablet 800 mg PO DAILY PRN fever or pain 03/11/25 03/11/25 rosuvastatin 10 mg tablet 10 mg PO DAILY 03/11/2502/27 oxycodone 5 mg tablet 5 mg PO QID PRN pain #20 tab s 03/12/25 PHYSICAL EXAM AT DISCHARGE Vital Signs: Vital Signs x48h Temp Pulse Resp BP Pulse Ox 03/12/25 11:20 36.5 C 61 18 98/63 94 03/12/25 07:41 37.3 C 81 20 121/71 99 General Appearance: positive No acute distress and Alert Eyes Bilateral: positive Normal inspection ENT: positive ENT inspection nml Neck: positive Nml inspection Respiratory: positive Chest non-tender Cardiovascular: positive Regular rate & rhythm Peripheral Pulses: positive 2+ Abdomen: positive Non-tender Skin: positive Color nml Extremities: positive Non-tender Neurologic/Psychiatric: positive Oriented x3 LABS 03/12/25 04:11 03/12/25 04:11 SEPSIS Current Stage of Sepsis: Resolved Possible source of Sepsis: Genitourinary FOLLOW UP Follow Up: With PCP, urology TIME SPENT Time Spent in Discharge (Minutes): 37 Discharge Plan Discharge Condition: Stable Prescriptions: New oxycodone 5 mg tablet 5 mg PO QID PRN (Reason: pain) Qty: 20 0RF Continued cephalexin 500 mg capsule 500 mg PO QID Qty: 27 0RF ibuprofen 800 mg tablet 800 mg PO DAILY PRN (Reason: fever or pain) Patient Comments: TAKE 1 TABLET BY MOUTH EVERY MORNING NEEDED FOR MUSCULOSKELETAL PAIN rosuvastatin 10 mg tablet 10 mg PO DAILY Patient Comments: TAKE 1 TABLET BY MOUTH EVERY DAY oxybutynin chloride 5 mg tablet extended release 24hr 5 mg PO QDAY Qty: 90 3RF Discontinued sulfamethoxazole-trimethoprim 800-160 mg tablet 1 tab PO BID Qty: 14 0RF sulfamethoxazole-trimethoprim 400-80 mg tablet 1 tab PO BID Qty: 10 0RF Health Concerns: You came into the hospital because you were having a UTI that was complicated by your recent urologic procedure. On review of previous urine cultures, it appears that you were growing E. coli, that is resistant to the antibiotic that you were initially on. It does show susceptibility to a drug class called cephalosporins. You were given Rocephin while in the hospital IV, and are responding to that. I am discharging you to continue your cephalexin as was previously ordered before he came into the hospital. Please take this as directed until the bottle is empty. You inform me that you already have a follow-up appointment with urology, I would encourage you to keep this appointment. You reported scrotal pain to me. Ultrasound shows that you have a condition called epididymoorchitis. This is an infection in the testicle and the epididymis. You were tested for common causes of this including STDs and that testing was negative. This is likely caused by combination of your UTI plus your recent urologic procedure. We discussed pain management for this. I am sending you home with a short course of oxycodone, though I believe that the pain will subside as the antibiotics take effect. I have reviewed nonpharmacologic pain management strategies for this, and I would recommend scrotal elevation, rest, application of heat or cold (whichever helps). You mention you are already on Motrin. [facility]. Recommended dosing for epididymitis as 200 to 400 mg every 6 hours not to exceed 1200 mg a day. If you are continuing with your [facility] supplied Motrin, I would recommend you take 1 dose in the morning and a half dose at night so that you do not exceed 1200 mg a day. Please reach out to healthcare provider if you continue to have fevers, or if your pain gets worse Print Language: Malay Follow-up Care: Jose Acuña [Primary Care Provider, Family Practice] Vitals documented within 30 minutes of discharge?: Yes
[2025-03-12] MEDS: oxyCODONE 5 MG TABLET PO STA (12:37)
[2025-03-12 13:31] VITALS: BP 110/70; TEMP 97.9; O2SAT 96
--- NOTE | 2025-03-13 11:42 | CONSULTATION NOTE ---
PFSH Active Problems All Active Problems (Updated 03/13/25 @ 00:00 by ) Epididymoorchitis (Acute) Urinary tract infection (Acute) Viral syndrome (Acute) BPH loc w urin obs/LUTS (Acute) Elevated PSA (Acute) Medical History Medical History (Updated 03/13/25 @ 00:00 by ) CARLOS ALBERTO treated with BiPAP High cholesterol Surgical History Surgical History History of colonoscopy History of arthroscopic knee surgery and ankle arthroscopy History of oral surgery Social History Social History (Updated 02/28/25 @ 12:58 by Anni Conte RN) Smoking Status: Current some day smoker If you are a former smoker, when did you quit? (Date/Year): occasional cigar Second hand tobacco smoke exposure: No Do you dip or chew tobacco?: No Do you vape?: No Living arrangement: At home Marital Status: Living Condition: With family Level: Independent Do you feel safe in your home environment?: Yes History of physical, verbal, emotional, or financial abuse?: No Frequency: Occasional ETOH - Additional Notes: rarely Substance Use: denies use POLST Patient has POLST: No Meds/Allgy Home Medications Ambulatory Orders Medication Instructions Recorded Confirmed oxybutynin chloride 5 mg 5 mg PO QDAY #90 tabs 03/11/25 tablet,extended release 24 hr cephalexin 500 mg capsule 500 mg PO QID #27 caps 03/0803/11/25 ibuprofen 800 mg tablet 800 mg PO DAILY PRN fever or pain 03/11/25 03/11/25 rosuvastatin 10 mg tablet 10 mg PO DAILY 03/11/2502/27 oxycodone 5 mg tablet 5 mg PO QID PRN pain #20 tab s 03/12/25 Allergies Allergies Allergy/AdvReac Type Severity Reaction Status Date / Time No Known Drug Allergies Allergy Verified 03/11/25 09:33 Results Lab Results Lab results reviewed: Yes 03/12/25 04:11 03/12/25 04:11 Conclusion/Plan Problem List (1) Sepsis: (2) Urinary tract infection: Qualifiers: Hematuria presence: with hematuria Urinary tract infection type: acute cystitis Qualified Code(s): N30.01 - Acute cystitis with hematuria (3) BPH loc w urin obs/LUTS: Lab Results Lab results reviewed: Yes 03/12/25 04:11 03/12/25 04:11
== END 2025-03-12 13:33 | disposition home or self-care (01) ==
LOC: MS2 09:30 → ED 09:30 → MS2 15:36
PROVIDERS: ADMIT Nurse Practitioner Acute Care; ATTEND Nurse Practitioner Acute Care
DX: A41.51 Sepsis due to Escherichia coli [E. coli]; N40.1 Benign prostatic hyperplasia with lower urinary tract symptoms; Z16.29 Resistance to other single specified antibiotic; F17.290 Nicotine dependence, other tobacco product, uncomplicated; N30.01 Acute cystitis with hematuria; N13.8 Other obstructive and reflux uropathy; N45.3 Epididymo-orchitis